=== PATIENT | male | born 1985 | race African-American/Black ===

== ENCOUNTER 2016-09-06 13:08 | Emergency (ER) | payer OTHER ==
--- NOTE | 2016-09-06 14:35 | EDDOCDS ---
Nurse's Notes [facility] Name: Marcia Hamilton Age: 31 yrs Sex: Male : 1985 Arrival Date: 09/06/2016 Time: 13:08 Bed I6 / 28 Private MD: Lu Mullins [facility] Diagnosis: Sprain of interphalangeal joint of right middle finger Presentation: 09/06 13:12 Presenting complaint: Patient states: Right middle finger injury a month ago playing rs3 basket ball. swelling and pain has not improved. Adult Sepsis Screening: The patient does not have new or worsening altered mentation. Patient's respiratory rate is less than 22. Systolic blood pressure is greater than 100. Patient has a qSOFA score of 0- Negative Sepsis Screen. Suicide/Homicide risk assessment- the patient denies having any suicidal and/or homicidal ideations and does not present with any other emotional, behavioral or mental health complaints. Status: Patient is not a customer service consultant or dependent. Transition of care: patient was not received from another setting of care. 13:12 Acuity: DEBRA Level 4 rs3 13:12 Method Of Arrival: Walkin/Carried/Asstd rs3 Triage Assessment: 13:14 General: Appears in no apparent distress. Pain: Location: dorsal aspect of middle rs3 phalanx of right middle finger and dorsal aspect of proximal phalanx of right middle finger. Pt Declines HIV testing. Musculoskeletal: Reports Pain is 5 out of 10 on a pain scale. Historical: - Allergies: no known allergies; - Home Meds: 1. none - PMHx: none; - PSHx: none; - Social history: Smoking status: Patient states former smoker of tobacco. No barriers to communication noted, The patient speaks fluent Polish. - Family history: Not pertinent. - : The pt / caregiver states he / she is not on anticoagulants. Home medication list is obtained from the patient. - Exposure Risk Screening:: None identified. Screenin:20 Screening information is obtained from the patient. Fall risk: No risks identified. jjr Assistance ADL's: requires no assistance with activities of daily living. Abuse/DV Screen: The patient / caregiver reports he/she is: not in a situation that causes fear, pain or injury. Nutritional screening: No deficits noted. Advance Directives: There is no active DNR order. home support is adequate. Assessment: 13:19 General: Appears in no apparent distress, well nourished, well groomed, Behavior is jjr appropriate for age. Musculoskeletal: Capillary refill < 3 seconds in right fingers Swelling present in right knuckle middle finger. 14:34 General: Appears in no apparent distress, no change in right middle finger. jjr Vital Signs: 13:11 BP 120 / 72 LA Sitting (auto/lg); Pulse 72; Resp 18; Temp 98.6(O); Pulse Ox 97% on R/A; bnb Weight 86.18 kg; Height 5 ft. 11 in. (180.34 cm); Pain 8/10; 14:20 BP 121 / 69; Pulse 55; Resp 18; Temp 99.8(TE); Pulse Ox 97% on R/A; Pain 8/10; ar3 13:11 Body Mass Index 26.50 (86.18 kg, 180.34 cm) bnb Vitals: 13:11 Log In Time: September 06, 2016 at 13:09. bnb ED Course: 13:10 Patient visited by Prachi Suresh PCA. bnb 13:10 Patient moved to Waiting bnb 13:11 [facility] is Private Physician. bnb 13:12 Patient moved to Pre RCE bnb 13:14 Triage Initiated rs3 13:17 Patient moved to Triage 3 ar3 13:20 Patient visited by Crystal Bullock RN. jjr 13:20 The patient / caregiver is instructed regarding the plan of care and ED course. jjr 13:31 [facility] ar2 13:31 Colleen Domingo MD is Attending Physician. ar2 13:31 Patient visited by August Pichardo PA-C. ar2 13:38 Patient moved to TR1 ar3 14:09 [facility] Payment Agreement was scanned into [employer] and attached to record. mpb 14:13 Patient moved to I6 / 28 pml 14:20 Patient visited by Rachael Valdovinos PCA. ar3 14:28 [facility] is Referral Physician. ar2 14:34 No IV's were initiated during this patient's visit. No procedures done that require jjr assistance. Order Results: There are currently no results for this order. Outcome: 14:28 Discharge ordered by Provider. ar2 14:34 Discharge Assessment: patient administered narcotics - no. The following High Risk jjr Discharge criteria are identified: None. Discharged to home ambulatory, with significant other. Condition: stable. Discharge instructions given to patient, Instructed on discharge instructions, follow up and referral plans. medication usage, Demonstrated understanding of instructions, medications, Prescriptions given X 1. No special radiology studies were completed. Property sent home with patient. 14:35 Patient left the ED. jjr Signatures: Joselyn Holguin,RN RN ck1 Crystal Bullock RN RN jjr August Pichardo, SARKIS PA-C ar2 Miriam PetersonRN RN rs3 Rachael Valdovinos, AGRONOMY LOCATION MANAGER AGRONOMY LOCATION MANAGER ar3 Aliya Abdul RN RN Ernesto Calle, Reg Reg mpb Prachi Suresh, AGRONOMY LOCATION MANAGER AGRONOMY LOCATION MANAGER bnb MTDD
--- NOTE | 2016-09-06 14:35 | EDDOCDS ---
Physician Documentation [facility] Name: Marcia Hamilton Age: 31 yrs Sex: Male : 1985 Arrival Date: 09/06/2016 Time: 13:08 Bed I6 / 28 Private MD: Lu Mullins [facility] Disposition: 09/06/16 14:28 Discharged to Home/Self Care. Impression: Sprain of interphalangeal joint of right middle finger. - Condition is Stable. - Discharge Instructions: Finger Sprain. - Prescriptions for Naprosyn 500 mg Oral Tablet - take 1 tablet by ORAL route 2 times per day take with food; 30 tablet. - Medication Reconciliation, Local Pharmacy Hours form. - Follow up: Lu Mullins [facility]; When: Call to arrange an appointment; Reason: Recheck today's complaints. - Problem is new. - Symptoms are unchanged. - Notes: use splint as needed Historical: - Allergies: no known allergies; - Home Meds: 1. none - PMHx: none; - PSHx: none; - Social history: Smoking status: Patient states former smoker of tobacco. No barriers to communication noted, The patient speaks fluent Argentine. - Family history: Not pertinent. - : The pt / caregiver states he / she is not on anticoagulants. Home medication list is obtained from the patient. - Exposure Risk Screening:: None identified. Vital Signs: 09/06 13:11 BP 120 / 72 LA Sitting (auto/lg); Pulse 72; Resp 18; Temp 98.6(O); Pulse Ox 97% on R/A; bnb Weight 86.18 kg / 189.99 lbs; Height 5 ft. 11 in. (180.34 cm); Pain 8/10; 14:20 BP 121 / 69; Pulse 55; Resp 18; Temp 99.8(TE); Pulse Ox 97% on R/A; Pain 8/10; ar3 13:11 Body Mass Index 26.50 (86.18 kg, 180.34 cm) bnb MDM: 13:36 Fingers Ordered. EDMS 14:09 Financial registration complete. mpb 14:09 [facility] Payment Agreement was scanned into [employer] and attached to record. mpb 14:29 Splint Affected Extremity ordered. ar2 Signatures: Dispatcher [employer] EDMS Joselyn HolguinRN RN ck1 Crystal Bullock RN RN jjr August Pichardo PA-C PAAmy ar2 Miriam PetersonRN RN rs3 Ernesto Hernandez, Reg Reg mpb The chart was reviewed and I authenticate all verbal orders and agree with the evaluation and treatment provided.Attachments: 14:09 [facility] Payment Agreement mpb MTDD
--- NOTE | 2016-09-06 19:16 | REP ---
RIGHT THIRD FINGER SERIES: 09/06/2016 Clinical history: Injured third digit playing basketball. Findings: There is soft tissue swelling about the PIP joint. No fracture, avulsion, subluxation or other focal bone lesion. The other phalanges, IP joints, metacarpals and MCP joints were all intact. Impression: 1. Soft tissue swelling only at the PIP joint. No fracture or avulsion. Signed by Kristopher Nagel MD 09/06/2016 07:07 P
--- NOTE | 2016-09-08 15:36 | EDDOCDS ---
Nurse's Notes [facility] Name: Marcia Hamilton Age: 31 yrs Sex: Male : 1985 Arrival Date: 09/06/2016 Time: 13:08 Bed I6 / 28 Private MD: Lu Mullins [facility] Diagnosis: Sprain of interphalangeal joint of right middle finger Presentation: 09/06 13:12 Presenting complaint: Patient states: Right middle finger injury a month ago playing rs3 basket ball. swelling and pain has not improved. Adult Sepsis Screening: The patient does not have new or worsening altered mentation. Patient's respiratory rate is less than 22. Systolic blood pressure is greater than 100. Patient has a qSOFA score of 0- Negative Sepsis Screen. Suicide/Homicide risk assessment- the patient denies having any suicidal and/or homicidal ideations and does not present with any other emotional, behavioral or mental health complaints. Status: Patient is not a director human services or dependent. Transition of care: patient was not received from another setting of care. 13:12 Acuity: DEBRA Level 4 rs3 13:12 Method Of Arrival: Walkin/Carried/Asstd rs3 Triage Assessment: 13:14 General: Appears in no apparent distress. Pain: Location: dorsal aspect of middle rs3 phalanx of right middle finger and dorsal aspect of proximal phalanx of right middle finger. Pt Declines HIV testing. Musculoskeletal: Reports Pain is 5 out of 10 on a pain scale. Historical: - Allergies: no known allergies; - Home Meds: 1. none - PMHx: none; - PSHx: none; - Social history: Smoking status: Patient states former smoker of tobacco. No barriers to communication noted, The patient speaks fluent Czech. - Family history: Not pertinent. - : The pt / caregiver states he / she is not on anticoagulants. Home medication list is obtained from the patient. - Exposure Risk Screening:: None identified. Screenin:20 Screening information is obtained from the patient. Fall risk: No risks identified. jjr Assistance ADL's: requires no assistance with activities of daily living. Abuse/DV Screen: The patient / caregiver reports he/she is: not in a situation that causes fear, pain or injury. Nutritional screening: No deficits noted. Advance Directives: There is no active DNR order. home support is adequate. Assessment: 13:19 General: Appears in no apparent distress, well nourished, well groomed, Behavior is jjr appropriate for age. Musculoskeletal: Capillary refill < 3 seconds in right fingers Swelling present in right knuckle middle finger. 14:34 General: Appears in no apparent distress, no change in right middle finger. jjr Vital Signs: 13:11 BP 120 / 72 LA Sitting (auto/lg); Pulse 72; Resp 18; Temp 98.6(O); Pulse Ox 97% on R/A; bnb Weight 86.18 kg; Height 5 ft. 11 in. (180.34 cm); Pain 8/10; 14:20 BP 121 / 69; Pulse 55; Resp 18; Temp 99.8(TE); Pulse Ox 97% on R/A; Pain 8/10; ar3 13:11 Body Mass Index 26.50 (86.18 kg, 180.34 cm) bnb Vitals: 13:11 Log In Time: September 06, 2016 at 13:09. bnb ED Course: 13:10 Patient visited by Prachi Suresh PCA. bnb 13:10 Patient moved to Waiting bnb 13:11 [facility] is Private Physician. bnb 13:12 Patient moved to Pre RCE bnb 13:14 Triage Initiated rs3 13:17 Patient moved to Triage 3 ar3 13:20 Patient visited by Crystal Bullock RN. jjr 13:20 The patient / caregiver is instructed regarding the plan of care and ED course. jjr 13:31 [facility]C [facility] ar2 13:31 Colleen Domingo MD is Attending Physician. ar2 13:31 Patient visited by August Pichardo PA-C. ar2 13:38 Patient moved to TR1 ar3 14:09 [facility] Payment Agreement was scanned into [employer] and attached to record. mpb 14:13 Patient moved to I6 / 28 pml 14:20 Patient visited by Rachael Valdovinos PCA. ar3 14:28 [facility] is Referral Physician. ar2 14:34 No IV's were initiated during this patient's visit. No procedures done that require jjr assistance. 17:57 T-Sheet-- Draft Copy was scanned into [employer] and attached to record. klr 19:36 Fingers Returned. EDMS Order Results: Radiology Order: Fingers Test: Fingers REASON FOR EXAMINATION: trauma, middle PIP joint; RIGHT THIRD FINGER SERIES: 09/06/2016; ; Clinical history: Injured third digit playing basketball.; ; Findings: There is soft tissue swelling about the PIP joint. No fracture,; avulsion, subluxation or other focal bone lesion. The other phalanges, IP; joints, metacarpals and MCP joints were all intact.; ; Impression:; 1. Soft tissue swelling only at the PIP joint. No fracture or avulsion.; ; ; Signed by; Kristopher Nagel MD 09/06/2016 07:07 P; Outcome: 14:28 Discharge ordered by Provider. ar2 14:34 Discharge Assessment: patient administered narcotics - no. The following High Risk jjr Discharge criteria are identified: None. Discharged to home ambulatory, with significant other. Condition: stable. Discharge instructions given to patient, Instructed on discharge instructions, follow up and referral plans. medication usage, Demonstrated understanding of instructions, medications, Prescriptions given X 1. No special radiology studies were completed. Property sent home with patient. 14:35 Patient left the ED. jjr Signatures: Dispatcher [facility] EDNM Joseyln HolguinRN LEDY ck1 Crystal Bullock RN RN jjr August Pichardo, PA-C PA-C ar2 Miriam Peterson RN RN rs3 Rachael Valdovinos, PROJECT CONSULTANT PROJECT CONSULTANT ar3 Aliya Abdul RN RN pml Briggs, Michael, Reg Reg mpb Misti Wilks klr Prachi Suresh, PROJECT CONSULTANT PROJECT CONSULTANT bnb Chart Complete MTDD
--- NOTE | 2016-09-08 15:36 | EDDOCDS ---
Physician Documentation [facility] Name: Marcia Hamilton Age: 31 yrs Sex: Male : 1985 Arrival Date: 09/06/2016 Time: 13:08 Bed I6 / 28 Private MD: Lu Mullins [facility] Disposition: 09/06/16 14:28 Discharged to Home/Self Care. Impression: Sprain of interphalangeal joint of right middle finger. - Condition is Stable. - Discharge Instructions: Finger Sprain. - Prescriptions for Naprosyn 500 mg Oral Tablet - take 1 tablet by ORAL route 2 times per day take with food; 30 tablet. - Medication Reconciliation, Local Pharmacy Hours form. - Follow up: Lu Mullins [facility]; When: Call to arrange an appointment; Reason: Recheck today's complaints. - Problem is new. - Symptoms are unchanged. - Notes: use splint as needed Historical: - Allergies: no known allergies; - Home Meds: 1. none - PMHx: none; - PSHx: none; - Social history: Smoking status: Patient states former smoker of tobacco. No barriers to communication noted, The patient speaks fluent Kuwaiti. - Family history: Not pertinent. - : The pt / caregiver states he / she is not on anticoagulants. Home medication list is obtained from the patient. - Exposure Risk Screening:: None identified. Vital Signs: 09/06 13:11 BP 120 / 72 LA Sitting (auto/lg); Pulse 72; Resp 18; Temp 98.6(O); Pulse Ox 97% on R/A; bnb Weight 86.18 kg / 189.99 lbs; Height 5 ft. 11 in. (180.34 cm); Pain 8/10; 14:20 BP 121 / 69; Pulse 55; Resp 18; Temp 99.8(TE); Pulse Ox 97% on R/A; Pain 8/10; ar3 13:11 Body Mass Index 26.50 (86.18 kg, 180.34 cm) bnb MDM: 13:36 Fingers Ordered. EDMS 14:09 Financial registration complete. mpb 14:09 [facility] Payment Agreement was scanned into [employer] and attached to record. mpb 14:29 Splint Affected Extremity ordered. ar2 17:57 T-Sheet-- Draft Copy was scanned into [employer] and attached to record. klr Signatures: Dispatcher [employer] EDMS Joselyn HolguinRN RN ck1 Crystal Bullock RN RN jjr August Pichardo PA-C PA-C ar2 Miriam Peterson RN RN rs3 Ernesto Hernandez, Reg Reg mpb Misti Wilks klgisele The chart was reviewed and I authenticate all verbal orders and agree with the evaluation and treatment provided.Attachments: 14:09 [facility] Payment Agreement mpb 17:57 T-Sheet-- Draft Copy klr Chart Complete MTDD
--- NOTE | 2016-09-08 15:36 | EDDOCDS ---
Physician Documentation [facility] Name: Marcia Hamilton Age: 31 yrs Sex: Male : 1985 Arrival Date: 09/06/2016 Time: 13:08 Bed I6 / 28 Private MD: Lu Mullins [facility] Disposition: 09/06/16 14:28 Discharged to Home/Self Care. Impression: Sprain of interphalangeal joint of right middle finger. - Condition is Stable. - Discharge Instructions: Finger Sprain. - Prescriptions for Naprosyn 500 mg Oral Tablet - take 1 tablet by ORAL route 2 times per day take with food; 30 tablet. - Medication Reconciliation, Local Pharmacy Hours form. - Follow up: Lu Mullins [facility]; When: Call to arrange an appointment; Reason: Recheck today's complaints. - Problem is new. - Symptoms are unchanged. - Notes: use splint as needed Historical: - Allergies: no known allergies; - Home Meds: 1. none - PMHx: none; - PSHx: none; - Social history: Smoking status: Patient states former smoker of tobacco. No barriers to communication noted, The patient speaks fluent Turkmen. - Family history: Not pertinent. - : The pt / caregiver states he / she is not on anticoagulants. Home medication list is obtained from the patient. - Exposure Risk Screening:: None identified. Vital Signs: 09/06 13:11 BP 120 / 72 LA Sitting (auto/lg); Pulse 72; Resp 18; Temp 98.6(O); Pulse Ox 97% on R/A; bnb Weight 86.18 kg / 189.99 lbs; Height 5 ft. 11 in. (180.34 cm); Pain 8/10; 14:20 BP 121 / 69; Pulse 55; Resp 18; Temp 99.8(TE); Pulse Ox 97% on R/A; Pain 8/10; ar3 13:11 Body Mass Index 26.50 (86.18 kg, 180.34 cm) bnb MDM: 13:36 Fingers Ordered. EDMS 14:09 Financial registration complete. mpb 14:09 [facility] Payment Agreement was scanned into [employer] and attached to record. mpb 14:29 Splint Affected Extremity ordered. ar2 17:57 T-Sheet-- Draft Copy was scanned into [employer] and attached to record. klr Signatures: Dispatcher [employer] EDMS Joselyn HolguinRN RN ck1 Crystal Bullock RN RN jjr August Pichardo PA-C PA-C ar2 Miriam Peterson RN RN rs3 Ernesto Hernandez, Reg Reg mpb Misti Wilks klgisele The chart was reviewed and I authenticate all verbal orders and agree with the evaluation and treatment provided.Attachments: 14:09 [facility] Payment Agreement mpb 17:57 T-Sheet-- Draft Copy klr Chart Complete MTDD
== END 2016-09-06 14:35 | disposition home or self-care (01) ==
LOC: M ED 13:08
DX: S63.610A Unspecified sprain of right index finger, initial encounter (principal); X58.XXXA Exposure to other specified factors, initial encounter; Y92.89 Other specified places as the place of occurrence of the external cause; Y93.67 Activity, basketball; Y99.8 Other external cause status; Z87.891 Personal history of nicotine dependence